=== PATIENT | female | born 1955 | race Caucasian/White ===

== ENCOUNTER → 2018-12-04 | Outpatient (CLI) | payer MEDICARE, OTHER ==
--- NOTE | 2018-12-04 14:28 | Diagnostic Imaging Report ---
PROCEDURE: MRI lumbar spine. TECHNIQUE: Multiplanar, multisequence MRI of the lumbar spine was performed without contrast. INDICATION: Low back pain and left leg pain. Fall in January 2018. COMPARISON: None. FINDINGS: The lumbar spine demonstrates mild grade 1 anterolisthesis at L5-S1. Alignment otherwise appears normal. There is mild disc height loss at L5-S1. Vertebral body heights are preserved. No acute fracture is seen. The conus terminates in appropriate position. The soft tissues about the lumbar spine demonstrate no acute abnormality. T12-L1: No significant disc bulge. No spinal canal or foraminal stenosis. L1-L2: Mild diffuse disc bulge and facet arthropathy. No spinal canal or foraminal stenosis. L2-L3: Diffuse disc bulge and facet arthropathy with ligamentous infolding. Minimal spinal canal narrowing with narrowing of the left lateral recess. Mild right foraminal narrowing and moderate left foraminal stenosis. L3-L4: Diffuse disc bulge and facet arthropathy with ligamentous infolding. Mild spinal canal narrowing with narrowing of the lateral recesses. Moderate right foraminal stenosis and mild left foraminal narrowing. L4-L5: Diffuse disc bulge and facet arthropathy with ligamentous infolding. Narrowing of the lateral recesses. No significant spinal canal stenosis. Dlenaemy-kb-nnzpon right foraminal stenosis. Mild left foraminal narrowing. L5-S1: Large central disc extrusion superimposed on a diffuse disc bulge with marked facet arthropathy and ligamentous infolding. Moderate spinal canal stenosis with narrowing of the lateral recesses bilaterally. Moderate right and [id number]-[id number] left foraminal stenosis. IMPRESSION: 1. Multilevel degenerative changes, most notable at L5-S1. No significant spinal canal stenosis is seen. There is multilevel foraminal stenosis, as described above. Dictated by: Dictated on workstation # [id number]
== END ==
LOC: RAD 13:28
PROVIDERS: ATTEND Family Medicine
DX: M47.817 Spondylosis without myelopathy or radiculopathy, lumbosacral region (principal); M48.07 Spinal stenosis, lumbosacral region; M51.26 Other intervertebral disc displacement, lumbar region
CPT/HCPCS: 72148

== ENCOUNTER 2020-10-16 09:54 | Outpatient (CLI) | payer MEDICARE, OTHER ==
[~2020-10-16] VITALS: Ht 152.4 cm; Wt 54.4 kg
[2020-10-16] MEDS ORDERED: ACHD5005 PO (12:49)
[2020-10-16] MEDS ORDERED: BUPR150T14 PO (12:49)
[2020-10-16] MEDS ORDERED: ONDA4TAB11 PO (12:49)
[2020-10-16] MEDS ORDERED: ALPR0.254 PO (12:49)
[2020-10-16] MEDS ORDERED: LISI20TA26 PO (12:49)
[2020-10-16] MEDS ORDERED: SERT-413 PO (12:49)
[2020-10-16] MEDS ORDERED: HYDR25TA4 PO (12:49)
[2020-10-16] MEDS ORDERED: ACYC400T21 PO (12:49)
[2020-10-16] MEDS ORDERED: ESCI-2 PO (12:49)
[2020-10-16] MEDS ORDERED: PREG50CA65 PO (12:49)
== END 2020-10-16 14:12 ==
LOC: PREOP 09:54
PROVIDERS: ATTEND Surgery
DX: Z01.818 Encounter for other preprocedural examination (principal)

== ENCOUNTER → 2020-10-27 | Day surgery (SDC) | payer MEDICARE, OTHER ==
[~2020-10-27] VITALS: Ht 152.4 cm; Wt 54.4 kg
[~2020-10-27] MED LIST: ACHD5005 PO; ACYC400T21 PO; ALPR0.254 PO; BUPR150T14 PO; ESCI-2 PO; HYDR25TA4 PO; LACTATED RINGERS 0 ML IV ONE; LACTATED RINGERS 1,000 ML IV ONE; LACTATED RINGERS 1,000 ML IV STA; LISI20TA26 PO; MIDAZOLAM 2 MG/2 ML (VERSED) VIAL ONE; ONDA4TAB11 PO; PREG50CA65 PO; PROPOFOL INJECTION 50 ML IV ONE; SERT-413 PO
[2020-10-27 10:08] VITALS: BP 119/88
--- NOTE | 2020-10-27 10:26 | Progress Note-Pre Operative ---
Pre-Operative Progress Note H&P Reviewed The H&P was reviewed, patient examined and no changes noted. Time Seen by Provider: 10:25 Date H&P Reviewed: Oct 27, 2020 Time H&P Reviewed: 10:25 Pre-Operative Diagnosis: screening BATOOL CHOWDHURY DO Oct 27, 2020 10:26
[2020-10-27 12:05] VITALS: BP 92/55
[2020-10-27 12:10] VITALS: BP 88/55
--- NOTE | 2020-10-27 12:13 | Progress Note-Post Operative ---
Post-Operative Progess Note Surgeon (s)/Roll Inspector (s) Surgeon BATOOL CHOWDHURY DO Roll Inspector: CANDACE Gan Pre-Operative Diagnosis screening Post-Operative Diagnosis Diverticula int hemorrhoids Procedure & Operative Findings Date of Procedure 10/27/20 Procedure Performed/Findings Colonoscopy PROCEDURE NOTE: After informed consent was obtained, the patient was brought to the endoscopy suite, placed in bed in left lateral decubitus position. She was administered IV sedation by the ENGINEER CHIEF who then monitored her vitals the entire time, heart rate, blood pressure and pulse ox and the scope was inserted, pushed all the way to about [address] in noted a large amount of diverticula. Pushed into the cecum, took a picture of appendiceal orifice and noted the ileo-cecal valve. Then slowly withdrew the scope insufflating to look circumferentially at the hudson starting in the cecum, up the ascending colon to the hepatic flexure, then down the transverse colon, splenic flexure, into the descending colon down in the sigmoid and then into the rectal vault and took pictures of the internal hemorrhoids as scope was pulled out. The patient tolerated the procedure. She was recovered in endoscopy suite. Anesthesia Type IV sedation by ENGINEER CHIEF Estimated Blood Loss Estimated blood loss (mL): none Specimens/Packing Specimens Removed none BATOOL CHOWDHURY DO Oct 27, 2020 12:13
--- NOTE | 2020-10-27 12:14 | Endoscopy Discharge Instruct ---
Endo Procedure/Findings Findings 1.: Diverticulosis 2.: Internal Hemorrhoids Discharge Instructions - Activity: You might feel a little sleepy until tomorrow. This is due to the medicine you received to relax you. Until tomorrow, you should: NOT drive a car, operate machinery or power tools. NOT drink any alcoholic beverages. NOT make any important decisions or sign importortant papers. Do not return to work until tomorrow, unless otherwise instructed. Resume previous activities tomorrow. Diet: Start by taking liquids. If you tolerate liquids, advance to solid food. 1.: Colonscopy in 10 years Notify Physician - If you experience excessive bleeding, unusual abdominal pain, fever, or chest pain, contact your doctor immediately. BATOOL CHOWDHURY DO Oct 27, 2020 12:14
[2020-10-27 12:15] VITALS: BP 96/59
[2020-10-27 12:20] VITALS: BP 96/59
--- NOTE | 2020-10-27 12:30 | Anesthesia-General Post-Op ---
MAC Patient Condition Mental Status/LOC: Same as Preop Cardiovascular: Satisfactory Nausea/Vomiting: Absent Respiratory: Satisfactory Pain: Controlled Complications: Absent Post Op Complications Complications None Follow Up Care/Instructions Patient Instructions None needed. Anesthesiology Discharge Order Discharge Order Patient is doing well, no complaints, stable vital signs, no apparent adverse anesthesia problems. No complications reported per nursing. SHANICE MIRANDA CRNA Oct 27, 2020 12:30
== END | disposition home or self-care (01) ==
LOC: ENDO 09:47
PROVIDERS: ATTEND Surgery
DX: Z12.11 Encounter for screening for malignant neoplasm of colon (principal); K57.90 Diverticulosis of intestine, part unspecified, without perforation or abscess without bleeding; K64.8 Other hemorrhoids; I10 Essential (primary) hypertension; F32.9 Major depressive disorder, single episode, unspecified; Z80.0 Family history of malignant neoplasm of digestive organs; Z80.1 Family history of malignant neoplasm of trachea, bronchus and lung; Z79.899 Other long term (current) drug therapy

== ENCOUNTER 2022-03-16 15:15 | Outpatient (RCR) | payer MEDICARE, OTHER ==
[~2022-03-16 15:15] MED LIST changes: +BUPR-105 PO; -BUPR150T14 PO; -LACTATED RINGERS 0 ML IV ONE; -LACTATED RINGERS 1,000 ML IV ONE; -LACTATED RINGERS 1,000 ML IV STA; -MIDAZOLAM 2 MG/2 ML (VERSED) VIAL ONE; -PROPOFOL INJECTION 50 ML IV ONE
== END 2022-03-16 21:00 | disposition home or self-care (01) ==
PROVIDERS: ATTEND Family Medicine
DX: R26.81 Unsteadiness on feet (principal); I10 Essential (primary) hypertension

== ENCOUNTER 2022-04-06 15:14 | Outpatient (RCR) | payer MEDICARE, OTHER | END 2022-04-13 | disposition home or self-care (01) | PROVIDERS: ATTEND Family Medicine | DX: R26.81 Unsteadiness on feet (principal); I10 Essential (primary) hypertension ==

== ENCOUNTER → 2022-08-04 | Outpatient (CLI) | payer MEDICARE, OTHER ==
--- NOTE | 2022-08-04 16:07 | Diagnostic Imaging Report ---
INDICATION: Left foot pain AP, bleeding, and lateral views left foot are obtained On the AP view, there is an oblique lucency in the distal aspect of the 5th metatarsal involving the metatarsal neck, compatible with a nondisplaced fracture. IMPRESSION: Nondisplaced fracture of distal aspect of 5th metatarsal. Dictated by: Dictated on workstation # [id number]
== END ==
LOC: RAD 13:42
PROVIDERS: ATTEND Family Medicine
DX: S92.355A Nondisplaced fracture of fifth metatarsal bone, left foot, initial encounter for closed fracture (principal); X58.XXXA Exposure to other specified factors, initial encounter
CPT/HCPCS: 73630

== ENCOUNTER → 2022-09-08 | Outpatient (CLI) | payer MEDICARE, OTHER ==
--- NOTE | 2022-09-08 12:11 | Diagnostic Imaging Report ---
EXAMINATION: Left foot 3 views HISTORY: Foot fracture COMPARISON: 08/04/2022 FINDINGS: There is a healing fracture of the distal left fifth metatarsal in unchanged alignment. There is callus formation. No new fracture. Joint spaces are normal. IMPRESSION: 1. Unchanged alignment of the healing distal left fifth metatarsal fracture. Dictated by: Dictated on workstation # [id number]
== END ==
LOC: RAD 11:26
PROVIDERS: ATTEND Family Medicine
DX: S92.355D Nondisplaced fracture of fifth metatarsal bone, left foot, subsequent encounter for fracture with routine healing (principal); X58.XXXD Exposure to other specified factors, subsequent encounter
CPT/HCPCS: 73630

== ENCOUNTER → 2022-09-28 | Outpatient (CLI) | payer MEDICARE, OTHER ==
--- NOTE | 2022-09-28 14:34 | Diagnostic Imaging Report ---
EXAMINATION: Left foot 3 views HISTORY: Foot pain COMPARISON: 09/08/2022 FINDINGS: There is unchanged alignment of a fracture of the distal left fifth metatarsal. No change in alignment. There is callus formation. No new fracture. No dislocation. Joint spaces are normal. IMPRESSION: 1. Unchanged alignment of a healing left fifth metatarsal fracture. Dictated by: Dictated on workstation # [id number]
== END ==
LOC: RAD 11:12
PROVIDERS: ATTEND Family Medicine
DX: S92.352D Displaced fracture of fifth metatarsal bone, left foot, subsequent encounter for fracture with routine healing (principal); X58.XXXD Exposure to other specified factors, subsequent encounter
CPT/HCPCS: 73630